=== PATIENT | male | born 1950 | race Caucasian/White ===

== ENCOUNTER → 2020-07-09 08:53 | Outpatient (BNVA) | payer MEDICARE, SELFPAY | PROVIDERS: PCP Internal Medicine; Referring Provider Internal Medicine; Visit Provider Physician Assistant | DX: M25.532 Pain in left wrist (principal); Z98.1 Arthrodesis status | CPT/HCPCS: 99212 ==

== ENCOUNTER 2025-05-15 08:13 | Outpatient (AMB) | payer MEDICARE, SELFPAY ==
--- OUTSIDE RECORDS SUMMARY | 2025-05-15 08:23 | XMS_ITS ---
Author Name [facility] Organization Unknown Care Team Organization Name Specialty Phone Email Start Date End Da te [facility] NORA HAYLEY Primary Care 06/27/2022 4
--- OUTSIDE RECORDS SUMMARY | 2025-05-15 08:23 | XMS_ITS | Patient Health Record ---
Author Organization [facility] Address [address] [facility] [place] [place] [address] Care Team Providers Care Manager Demand Name Role Phone Tye Noble Primary Care Provider ALF Kendrick Unavailable [phone] Allergies Allergen (clinical drug ingredient) Drug/Non Drug Allergy documented on EMR Reaction Allergy Type Onset Date Status pregabalin Lyrica Unknown Drug Allergy Active Substance with 5-sxgnafm-4-methylgluta ryl-coenzyme A reductase inhibitor mechanism of action (substance) Statins Unknown Drug Allergy Active Reason For Referral No Information Medications Medication SIG (Take, Route, Frequency, Duration) Notes Start Date End Date Status Irbesartan 300 MG 1 tablet Orally Once a day Active Furosemide 20 MG 1 tablet Orally Once a day Active Albuterol Sulfate 108 (90 Base) MCG/ACT 2 puff as needed Inhalation every 4 hrs Not-Takin g Tolnaftate 1 % 1 application to the right big toenail Externally Once a day; Duration: 90 days Active Chlorthalidone 25 MG 1 tablet in the morning with food Orally Once a day Not-Taking Nasacort Allergy 24HR 55 MCG/ACT 1 spray in each nostril Nasally Once a day Not-Taking Wixela Inhub 250-50 MCG/ACT 1 puff Inhalation Twice a day bid Not-Taking Centrum Silver - as directed Orally Active Flonase Allergy Relief 50 MCG/ACT 1 spray in each nostril Nasally Once a day Active Naproxen 500 MG 1-2 tablet with food or milk as needed Orally bid Not-Taking Clopidogrel Bisulfate 75 MG 1 tablet Orally Once a day Active Airborne - as directed Orally Active Losartan Potassium 100 MG 1 tablet Orall y Once a day Not-Taking Cilostazol 50 MG 1 tablet 30 minutes before or 2 hours after breakfast and dinner Orally Twice a day Active Nasal Grottoes 0.05 % 2 sprays in each nostril as needed Nasally Twice a day Not-Taking Zetia 10 MG 1 tablet Orally Once a day Active Gabapentin 600 MG 2 tablet Orally bid Active Aspirin 81 MG 1 tablet Orally Once a day Active carBAMazepine 200 MG 1 tablet Orally Twi ce a day Active hydrALAZINE HCl 100 MG 1 tablet with bruna d Orally Twice a day Active amLODIPine Besylate 10 MG 1 tablet Orall y Once a day Active Vitamin D 50 MCG (1999) 1 tablet Oral ly Once a day Active Vitamin C Active Omeprazole 20 MG 1 capsule 30 minutes before morning meal Orally Once a day Active Metoprolol Tartrate 100 MG 1 tablet with food Orally Twice a day Active metFORMIN HCl ER 500 MG 1 tablet with ev ening meal Orally Once a day Active Cetirizine HCl 10 MG 1 tablets Orally On ce a day Active Problems Problem Type SNOMED Code ICD Code Onset Dates Problem Status W/U Status Risk Notes Problem Peripheral circulatory disorder associated with diabetes mellitus (516296510) Type 2 diabetes mellitus with other circulatory complications (E11.59) Active confirmed Problem Type 2 diabetes mellitus with other specified complication (E11.69) Active confirmed Problem Obesity (165607885) Obesity, unspecified (E66.9) Active confirmed Problem Polyneuropathy (65169038) Other polyneuropathy (G62.89) Active confirmed Vital Signs Heart Rate 74 /min 11/24/2024 Temperature 97.5 degrees Fahrenheit 02/23/2025 Respiratory Rate 20 /min 02/23/2025 Blood pressure diastolic 60 mm Hg 02/23/2025 Height 6ft in 02/23/2025 Blood pressure systolic 130 mm Hg 02/23/2025 Weight 300.2 lbs 02/23/2025 BMI 40.71 kg/m2 02/23/2025 Encounters Encounter Location Date Provider Diagnosis [facility] [address] [address] 05/23/2024 ALF ORR Other polyneuropathy G62.89 ; Type 2 diabetes mellitus with other circulatory complications E11.59 ; Onychomycosis B35.1 ; Callus of foot L84 ; Flat foot [pes planus] (acquired), right foot M21.41 and Flat foot [pes planus] (acquired), left foot M21.42 [facility] [address] 08/25/2024 ALF ORR Other polyneuropathy G62.89 ; Type 2 diabetes mellitus with other circulatory complications E11.59 ; Onychomycosis B35.1 ; Callus of foot L84 ; Flat foot [pes planus] (acquired), right foot M21.41 and Flat foot [pes planus] (acquired), left foot M21.42 [facility] [address] 11/24/2024 ALFSHRUTHI ORR Other polyneuropathy G62.89 ; Type 2 diabetes mellitus with other circulatory complications E11.59 ; Onychomycosis B35.1 ; Callus of foot L84 ; Flat foot [pes planus] (acquired), right foot M21.41 and Flat foot [pes planus] (acquired), left foot M21.42 [facility] [address] 02/23/2025 ALFSHRUTHI ORR Other polyneuropathy G62.89 ; Type 2 diabetes mellitus with other circulatory complications E11.59 ; Onychomycosis B35.1 ; Callus of foot L84 ; Flat foot [pes planus] (acquired), right foot M21.41 and Flat foot [pes planus] (acquired), left foot M21.42 Assessments Encounter Date Diagnosis (ICD Code) Assessment Notes Treatment Notes Treatment Clinical Notes Section Notes 05/23/2024 Other polyneuropathy (ICD-10 - G62.89) We discussed he has idiopathic neuropathy and is currently being followed and managed by neurology. He is current controlled and does not wish to pursue more pharmacologic treatment. His neurological exam remains the same this visit. 08/25/2024 Other polyneuropathy (ICD-10 - G62.89) We discussed he has idiopathic neuropathy and is currently being followed and managed by neurology. He is current controlled and does not wish to pursue more pharmacologic treatment. His neurological exam remains the same this visit. 11/24/2024 Other polyneuropathy (ICD-10 - G62.89) We discussed he has idiopathic neuropathy and is currently being followed and managed by neurology. He is current controlled and does not wish to pursue more pharmacologic treatment. His neurological exam remains the same this visit. 02/23/2025 Other polyneuropathy (ICD-10 - G62.89) We discussed he has idiopathic neuropathy and is currently being followed and managed by neurology. He is current controlled and does not wish to pursue more pharmacologic treatment. His neurological exam remains the same this visit. 02/23/2025 Type 2 diabetes mellitus with other circulatory complications (ICD-10 - E11.59) 11/24/2024 Type 2 diabetes mellitus with other circulatory complications (ICD-10 - E11.59) 05/23/2024 Onychomycosis (ICD-10 - B35.1) I reviewed with the patient various treatment methods for toenail fungus including topical, oral, laser, and removal of the infected toenails. We discussed starting topical medication. I explained to the patient that a toenail takes about 12 months to grow out completely, so they should start to slowly see results. We discussed there are both OTC treatments as well as prescription medication for the topical treatment of toenail fungus. Rx written for Tolnaftate to apply to each affected toenail daily. He has about 20% improvement of the toenail this visit. He is now on anticoagulation treatment for peripheral vascular disease. Aseptic debridement of toenails x 10 with insulation cutter and former and curette, pt tolerated well. Patient told he can remove the bandage after 24 hours. He is in agreement with this plan. Discussed with the patient that routine nail care services are only covered by insurance every 60 days. Pt understands that if they would like to return prior to this time frame, they may have to pay [id number]. 08/25/2024 Type 2 diabetes mellitus with other circulatory complications (ICD-10 - E11.59) 05/23/2024 Type 2 diabetes mellitus with other circulatory complications (ICD-10 - E11.59) 05/23/2024 Callus of foot (ICD-10 - L84) Using a #15 blade, aseptic debridement of the left hallux callus x 1 was performed. Patient tolerated well. 08/25/2024 Onychomycosis (ICD-10 - B35.1) I reviewed with the patient various treatment methods for toenail fungus including topical, oral, laser, and removal of the infected toenails. We discussed starting topical medication. I explained to the patient that a toenail takes about 12 months to grow out completely, so they should start to slowly see results. We discussed there are both OTC treatments as well as prescription medication for the topical treatment of toenail fungus. Rx written for Tolnaftate to apply to each affected toenail daily. He has about 40% improvement of the toenail this visit. He is now on anticoagulation treatment for peripheral vascular disease. Aseptic debridement of toenails x 10 with insulation cutter and former and curette, pt tolerated well. He is in agreement with this plan. Discussed with the patient that routine nail care services are only covered by insurance every 60 days. Pt understands that if they would like to return prior to this time frame, they may have to pay [id number]. 11/24/2024 Onychomycosis (ICD-10 - B35.1) I reviewed with the patient various treatment methods for toenail fungus including topical, oral, laser, and removal of the infected toenails. We discussed starting topical medication. I explained to the patient that a toenail takes about 12 months to grow out completely, so they should start to slowly see results. We discussed there are both OTC treatments as well as prescription medication for the topical treatment of toenail fungus. Rx written for Tolnaftate to apply to each affected toenail daily. He has about 40% improvement of the toenail this visit. He is now on anticoagulation treatment for peripheral vascular disease. Aseptic debridement of toenails x 10 with insulation cutter and former and curette, pt tolerated well. He is in agreement with this plan. Discussed with the patient that routine nail care services are only covered by insurance every 60 days. Pt understands that if they would like to return prior to this time frame, they may have to pay [id number]. 02/23/2025 Onychomycosis (ICD-10 - B35.1) I reviewed with the patient various treatment methods for toenail fungus including topical, oral, laser, and removal of the infected toenails. We discussed starting topical medication. I explained to the patient that a toenail takes about 12 months to grow out completely, so they should start to slowly see results. We discussed there are both OTC treatments as well as prescription medication for the topical treatment of toenail fungus. Rx written for Tolnaftate to apply to each affected toenail daily. He has about 40% improvement of the toenail this visit. He is now on anticoagulation treatment for peripheral vascular disease. Aseptic debridement of toenails x 10 with insulation cutter and former and curette, pt tolerated well. Pinpoint bleeding of the left hallux, controlled with pressure, bacitracin and a band-aid applied. He is in agreement with this plan. Discussed with the patient that routine nail care services are only covered by insurance every 60 days. Pt understands that if they would like to return prior to this time frame, they may have to pay [id number]. 02/23/2025 Callus of foot (ICD-10 - L84) 11/24/2024 Callus of foot (ICD-10 - L84) 08/25/2024 Callus of foot (ICD-10 - L84) Using a #15 blade, aseptic debridement of the left hallux callus x 1 was performed. Patient tolerated well. 05/23/2024 Flat foot [pes planus] (acquired), right foot (ICD-10 - M21.41) 05/23/2024 Flat foot [pes planus] (acquired), left foot (ICD-10 - M21.42) 08/25/2024 Flat foot [pes planus] (acquired), right foot (ICD-10 - M21.41) 11/24/2024 Flat foot [pes planus] (acquired), right foot (ICD-10 - M21.41) 02/23/2025 Flat foot [pes planus] (acquired), right foot (ICD-10 - M21.41) RX for diabetic shoes and sneakers will be sent per the patient's request to [facility] in [place]. 02/23/2025 Flat foot [pes planus] (acquired), left foot (ICD-10 - M21.42) 11/24/2024 Flat foot [pes planus] (acquired), left foot (ICD-10 - M21.42) 08/25/2024 Flat foot [pes planus] (acquired), left foot (ICD-10 - M21.42) Plan Of Treatment Next Appt Details Provider Name:LAF ORR, 05/29/2025 10:30:00 AM, [address], [place], [address], Insurance Providers Payer Name Payer Address Payer Phone Subscriber Number Group Number Insured Name Patient Relationship to Insured Coverage Start Date Coverage End Date [facility] [address] [place] [phone] [id number] Soy Catalino Self - patient is the insured Medical (General) History Medical History History ICD Code Other ill-defined heart diseases I51.89 Controlled type 2 diabetes m ellitus with other neurologic complication, without long-term current use of insulin E11.49 Chronic kidney disease, stage 3 N18.3 Morbid (severe) obesity with alveolar hy poventilation E66.2 Body mass index (BMI) 39.0-39.9, adult Z 68.39 Anemia, unspecified D64.9 Personal history of nicotine dependence Z87.891 Chronic obstructive pulmonary disease, u nspecified J44.9 Onychomycosis B35.1 Mononeuropathy G58.9 Plantar fasciitis of right foot M72.2 Asymptomatic varicose veins of unspecifi ed lower extremity I83.90 Personal history of other infectious and parasitic diseases Z86.19 Obstructive sleep apnea (adult) (pediatr ic) G47.33 Chronic rhinitis J31.0 Gastro-esophageal reflux disease without esophagitis K21.9 Diverticulum of esophagus, acquired K22. 5 Dysphagia, oropharyngeal phase R13.12 Polyneuropathy G62.9 Diverticulitis of large inte lupe without perforation or abscess without bleeding K57.32 Benign neoplasm of colon, unspecified D1 2.6 Essential (primary) hypertension I10 Morbid (severe) obesity due to excess ca lories E66.01 Hyperlipidemia, unspecified E78.5 Impaired fasting glucose R73.01 Heart failure, unspecified I50.9 Zoster without complications B02.9 Calculus of gallbladder without cholecys titis without obstruction K80.20 Chest pain, unspecified R07.9 Epigastric pain R10.13 + COVID 2020 COVID vaccinated X 3 (Pfizer) Surgical History Surgery Date(Month/Year) EGD colonoscopy cholecystectomy wrist surgery tonsillectomy left hip replacement 10/2020 cardiac stent- [facility] 06/2023 Hospitalization History Reason Date(Month/Year) tonsillectomy hypertension 08/2022 hypertension 07/2022 left hip replacement 10/2020
--- OUTSIDE RECORDS SUMMARY | 2025-05-15 08:23 | XMS_ITS | Clinical Summary ---
Author Organization [facility] Address [address] [place] [address] Care Team Providers Care Oral And Maxillofacial Surgeon Name Role Phone Annamarie Toro DO Primary Care P rovider Allergies Active Allergy Reactions Criticality Noted Date Comments Ezetimibe Other (See Comments) 01/16/2017 Pregabalin 05/24/2012 nightmares Statins 12/12/2017 Medications Medication Sig Dispensed Refills Start Date End Date Status PROAIR HFA 108 (90 Base) MCG/ACT inhaler INHALE TWO PUFFS BY MOUTH INTO THE LUNGS FOUR TIMES A DAY NEEDED FOR COUGH FOR SHORTNESS OF BREATH OR WHEEZING 5 10/17/2017 Active carBAMazepine (TEGRETOL) 200 MG tablet 1 11/19/2017 Active cetirizine (ZYRTEC) 10 MG tablet TAKE ONE TABLET BY MOUTH EVERY DAY 5 11/15/2017 Active chlorthalidone (HYGROTON) 25 MG tablet TAKE ONE TABLET BY MOUTH EVERY DAY 1 10/16/2017 Active metoprolol tartrate (LOPRESSOR) 100 MG tablet Take 100 mg by mouth 2 (two) times a day. 1 11/22/2017 Active omeprazole (PRILOSEC) 20 MG capsule TAKE ONE CAPSULE BY MOUTH EVERY DAY 1 10/16/2017 Active gabapentin (NEURONTIN) 400 MG capsule Take 400 mg by mouth 3 (three) times a day. 0 Active acetaminophen (TYLENOL) 325 MG tablet Take 650 mg by mouth every 6 (six) hours as needed for pain. 0 Active aspirin 81 MG chewable tablet Chew 81 mg by mouth. 0 Active ezetimibe (ZETIA) tablet 10 mg Take 10 mg by mouth. 0 Active fluticasone (FLONASE) 50 MCG/ACT nasal spray 2 sprays each nostril twice daily x 1 week then once daily as needed. 0 12/06/2015 Active Multiple Vitamins-Minerals (CENTRUM SILVER) tablet Take 1 tablet by mouth. 0 Active naproxen (NAPROSYN) 500 MG tablet Take 500 mg by mouth. 0 01/21/2018 Active Active Problems Problem Noted Date Diagnosed Date Arthritis of left hip 03/22/2018 Arthritis of left hip 12/12/2017 Trochanteric bursitis, left hip 12/12/2017 Family History Medical History Relation Name Comments Cancer Father Heart disease Father Blood Clots Mother Heart disease Mother Hyperlipidemia Mother Relation Name Status Comments Father Mother Social History Tobacco Use Types Packs/Day Years Used Date Smoking Tobacco: Former Cigarettes 1 Q uit: 1987 Smokeless Tobacco: Never Alcohol Use Standard Drinks/Week Comments No 0 (1 standard drink = 0.6 oz pur e alcohol) Sex and Gender Information Value Date Recorded Sex Assigned at Not on file Gender Identity Not on file Sexual Orientation Not on file Last Filed Vital Signs Vital Sign Reading Time Taken Comments Blood Pressure - - Pulse - - Temperature - - Respiratory Rate - - Oxygen Saturation - - Inhaled Oxygen Concentration - - Weight 131.5 kg (290 lb) 03/22/2018 11:22 AM EDT Height 182.9 cm (6') 03/22/2018 11:22 AM EDT Body Mass Index 39.33 03/22/2018 11:22 AM EDT Plan of Treatment Health Maintenance Due Date Last Done Comments Hepatitis C Screening 1950 COVID-19 Vaccine (#1) 1948 Depression Screening 1960 Preventative Health Evaluation 1966 Shingrix-Zoster Vaccine (1 o f 2) 1998 Fall Risk Assessment 2013 DTap / Tdap / Td (2 - Td or Tdap) 05/16/2021 05/16/2011 RSV Adult > 60+ Yrs or (1 - 1-dose 75+ series) 2023 Influenza Vaccine (#1) 2025 Pneumococcal Vaccine Completed 04/06/2016, 06/13/2013, 11/04/2008 Hepatitis B Vaccines Aged Out No long er eligible based on patient's age to complete this topic RSV Ped < 20 months Aged Out No longe r eligible based on patient's age to complete this topic Care Teams Oral And Maxillofacial Surgeon Relationship Specialty Start Date End Date Annamarie Toro DO PCP - General Journeyman Mechanic 11/20/17
--- NOTE | 2025-05-15 08:29 | A.OFFVIS_ITS ---
Intake Visit Reasons: 6 month f/u Allergies lyrica Allergy (Unknown, Uncoded 05/15/25 08:29) Unknown statins Allergy (Unknown, Uncoded 05/15/25 08:29) Unknown Medication List - Last Reconciled 05/15/25 by Ann Glover CNP albuterol sulfate 1.25 mg inhalation QID PRN albuterol sulfate 90 mcg/actuation (ProAir HFA) 1 inh inhalation QID aspirin 81 mg PO DAILY carbamazepine (Epitol) 200 mg PO ONCE clopidogrel 75 mg PO DAILY ezetimibe 10 mg PO DAILY fluticasone furoate 50 mcg/actuation inhalation fluticasone propionate 50 mcg/actuation (Flonase Allergy Relief) 1 spray intranasal BID furosemide (Lasix) 10 mg PO QAM gabapentin 600 mg PO TID hydralazine 100 mg PO BID irbesartan 300 mg PO DAILY metformin 500 mg PO DAILY metoprolol chau-hydrochlorothiaz 25-12.5 mg 1 tab PO DAILY omeprazole 20 mg PO DAILY HPI Comments Details: 75-year-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 He was doing okay. Pain was controlled with medication. He occasionally had some shooting pains. He was walking with cane, no recent falls. Sleep was up and down. Blood sugar was okay, usually between 120-135. [facility] Medical History (Updated 05/15/25 @ 08:33 by Ann Glover CNP) Painful diabetic neuropathy Neuropathic pain Benign positional vertigo Obesity Congenital ptosis Peripheral neuropathy Diabetes COPD (chronic obstructive pulmonary disease) HTN (hypertension) Hypercholesterolemia JESSICA (obstructive sleep apnea) GERD with apnea Dupuytren's contracture Wrist ankylosis Surgical History (Updated 07/09/20 @ 09:32 by Byron Seals PA-C) Status post fusion of wrist History of cholecystectomy History of tonsillectomy History of surgery on wrist Social History (Updated 07/09/20 @ 09:09 by Vianca Heck PA-C) Current occupational status: retired Current occupation: rt handed Review of Systems Const Denies chills, Denies daytime sleepiness, Reports difficulty sleeping, Denies fatigue, Denies fever(s), Denies frequent falls, Denies headache(s), Denies increased appetite, Denies poor appetite, Denies snoring, Denies weakness, Denies weight gain and Denies weight loss Eyes Denies loss of vision ENT Denies vertigo, Denies dizziness and Denies headache(s) Card Denies chest pain at rest, Denies chest pain with activity, Denies syncope, Denies leg edema and Denies palpitations Resp Denies snoring GI Denies constipation, Denies heartburn, Denies diarrhea and Denies nausea Denies urinary frequency, Denies urinary incontinence and Denies urinary urgency Musc Reports abnormal gait, Reports numbness and Reports tingling Skin/Breast Denies dry skin and Denies rash Neuro Reports abnormal gait, Denies vertigo, Denies dizziness, Denies syncope, Denies frequent falls, Denies headache(s), Denies lack of coordination, Denies loss of vision, Denies memory loss, Reports numbness, Denies restless legs, Denies seizure-like activity, Reports tingling, Denies paresthesias, Denies tremor(s) and Denies weakness Psych Denies anxiety, Denies depression, Denies auditory hallucinations, Denies memory loss, Denies visual hallucinations and Denies suicidal ideation Endo Denies fatigue and Denies palpitations Physical Exam Const Other: General Appearance:? normal, in no acute distress. Skin:? no rashes, no significant birthmarks. Heart:? S1, S2 normal, no murmurs. Lungs:? clear anteriorly and posteriorly. Extremities:? no edema. Psych:? alert, oriented, cognitive function intact, cooperative with exam. Neuro Other: Mental Status:?Normal attention, orientation, memory and affect.? Cranial Nerves:?Pupils are equal, round and reactive to light. External occular muscles are intact. Visual hastings are full. Moderate R sided ptosis. Face is symmetrical. Facial sensations are normal. Tongue is midline. Palate elevates symmetrically. Shoulder shrugging is normal. Hearing to bedside conversation is normal. Motor Examination:?DTRs trace to absent. Sensory Exam:?....? Coordination:?No ataxia,?no titubation.? Gait Exam: Slow and cautious with cane. Extrapyramidal System:?No tremor, rigidity with normal facial expressions.? Pronator Drift:?Not present.? Involuntary Movements:?No tremors seen.? Speech:?Normal.? Results Reviewed Results Reviewed: Routine EEG in office in 2016: [place] NCV/EMG LE 11/10/15 MILD AXONAL SENSORY AND MOTOR PERIPHERAL NEUROPATHY. THERE IS NO SIGNIFICANT DIFFERENCE FROM THE STUDY IN 2012. EMG/NCS in 2007: mild SM axonal PN EMG/NCS at office in 2009: mild to mod axonal SM PN, motor more than sensory EMG/NCS at office in 2011: mild axonal SM PN, motor more than sensory. Assessment & Plan Assessment & Plan (1) Painful diabetic neuropathy: Code(s): E11.40 - Type 2 diabetes mellitus with diabetic neuropathy, unspecified Category: Medical Plan: Continue gabapentin 600mg 1 tablet three times a day. Continue carbamazepine 200mg 1 tablet at bedtime. Stay physically active, use cane. Control blood sugar. Medications: New gabapentin 600 mg PO TID 270 tabs 1RF 90 days carbamazepine (Tegretol) 200 mg PO BEDTIME 90 tabs 1RF 90 days Discontinued carbamazepine (Epitol) Discontinued Reason: Order 200 mg PO ONCE Coding Level of Care Code Est Pt Level 4 (95617) Diagnoses Painful diabetic neuropathy E11.40
== END 2025-05-15 08:42 | disposition home or self-care (01) ==
LOC: HO.HSM 08:13
PROVIDERS: PCP Internal Medicine; Referring Provider Internal Medicine; Visit Provider Registered Nurse
DX: E11.40 Type 2 diabetes mellitus with diabetic neuropathy, unspecified (principal)
CPT/HCPCS: 99214

== ENCOUNTER → 2025-05-15 08:13 | Outpatient (BNVA) | payer MEDICARE, SELFPAY | PROVIDERS: PCP Internal Medicine; Referring Provider Internal Medicine; Visit Provider Registered Nurse | DX: E11.40 Type 2 diabetes mellitus with diabetic neuropathy, unspecified (principal); I10 Essential (primary) hypertension; E66.9 Obesity, unspecified; G47.33 Obstructive sleep apnea (adult) (pediatric); Z99.89 Dependence on other enabling machines and devices | CPT/HCPCS: 99212 ==